=== PATIENT | female | born 1955 | race Caucasian/White ===

== ENCOUNTER 2017-02-02 12:08 | Day surgery (SDC) | payer OTHER ==
[2017-02-02] MEDS ORDERED: ALPRAZolam 0.5 MG TAB PO STA (12:58)
[2017-02-02 13:01] VITALS: PULSE 85; RESP 16; TEMP 97.2
[2017-02-02 14:54] VITALS: BP 137/81
--- NOTE | 2017-02-02 15:55 | US ---
EXAMINATION TYPE: US FNA thyroid DATE OF EXAM: 02/02/2017 COMPARISON: NONE HISTORY: right Thyroid nodule.Maximal barrier technique was utilized. After informed consent, skin o verlying the lesion was localized with ultrasound and the overlying skin prepped and draped. Ultrasou nd was utilized using sterile technique. Lidocaine was used for local anesthesia. Four passes with a 25-gauge needle were made into the nodule and aspirated specimen was submitted to cytology. Followi ng the procedure hemostasis achieved. No immediate complication. The patient discharged in stable c ondition. IMPRESSION: STATUS POST ULTRASOUND GUIDED FINE NEEDLE ASPIRATION OF THYROID NODULE, PATHOLOGY IS PEND ING. THIS PROCEDURE WAS PERFORMED BY THE UNDERSIGNED.
--- NOTE | 2017-02-02 15:56 | US ---
EXAMINATION TYPE: US FNA thyroid DATE OF EXAM: 02/02/2017 COMPARISON: NONE HISTORY: left upper Thyroid nodule. Maximal barrier technique was utilized. After informed consent, skin overlying the lesion was locali zed with ultrasound and the overlying skin prepped and draped. Ultrasound was utilized using sterile technique. Lidocaine was used for local anesthesia. Four passes with a 25-gauge needle were made int o the nodule and aspirated specimen was submitted to cytology. Following the procedure hemostasis ac hieved. No immediate complication. The patient discharged in stable condition. IMPRESSION: STATUS POST ULTRASOUND GUIDED FINE NEEDLE ASPIRATION OF THYROID NODULE, PATHOLOGY IS PEND ING. THIS PROCEDURE WAS PERFORMED BY THE UNDERSIGNED.
--- NOTE | 2017-02-02 15:57 | US ---
EXAMINATION TYPE: US FNA thyroid DATE OF EXAM: 02/02/2017 COMPARISON: NONE HISTORY: left lower pole Thyroid nodule. Maximal barrier technique was utilized. After informed consent, skin overlying the lesion was locali zed with ultrasound and the overlying skin prepped and draped. Ultrasound was utilized using sterile technique. Lidocaine was used for local anesthesia. Four passes with a 25-gauge needle were made int o the nodule and aspirated specimen was submitted to cytology. Following the procedure hemostasis ac hieved. No immediate complication. The patient discharged in stable condition. IMPRESSION: STATUS POST ULTRASOUND GUIDED FINE NEEDLE ASPIRATION OF THYROID NODULE, PATHOLOGY IS PEND ING. THIS PROCEDURE WAS PERFORMED BY THE UNDERSIGNED.
== END 2017-02-02 14:50 | disposition home or self-care (01) ==
LOC: RADPROMAIN 12:08
PROVIDERS: ATTEND Otolaryngology
DX: E04.1 Nontoxic single thyroid nodule (principal)
CPT/HCPCS: 10022; 76942; 88173; 88305

== ENCOUNTER → 2018-08-30 | Outpatient (CLI) | payer OTHER ==
[2018-08-30 12:05] LABS: HCT 41.6 % (34.0-46.0); MCH 30.6 pg (25.0-35.0); MCHC 33.7 g/dL (31.0-37.0); Mean Platelet Volume 6.5; Platelet Count 171 k/uL (150-450); RBC 4.57 m/uL (3.80-5.40); WBC 7.2 k/uL (3.8-10.6)
[2018-08-30 12:19] LABS: INR 0.9 (<1.2); Partial Thromboplastin Time 24.3 sec (22.0-30.0); Prothrombin Time 9.9 sec (9.0-12.0)
[2018-08-30 12:20] LABS: Anion Gap 9 mmol/L; Blood Urea Nitrogen 11 mg/dL (7-17); Carbon Dioxide 26 mmol/L (22-30); Chloride 106 mmol/L (98-107); Potassium 3.9 mmol/L (3.5-5.1); Sodium 141 mmol/L (137-145)
[2018-08-30 12:52] LABS: Amorphous Sediment,Urine Rare /hpf; Appearance,Urine Cloudy (Clear); Bilirubin,Urine Negative (Negative); Blood,Urine Negative (Negative); Color,Urine Yellow; Glucose,Urine (UA) Negative (Negative); Ketones,Urine Negative (Negative); Leukocyte Esterase,Urine Negative (Negative); Mucus,Urine Occasional /hpf; Nitrite,Urine Negative (Negative); PH, Urine 6.5 (5.0-8.0); Protein,Urine Negative (Negative); RBC,Urine 1 /hpf (0-5); Specific Gravity,Urine 1.013 (1.001-1.035); Squamous Epithelial Cell,Urine 2 /hpf (0-4); Urobilinogen,Urine <2.0 mg/dL (<2.0); WBC,Urine 1 /hpf (0-5)
== END | disposition home or self-care (01) ==
LOC: LABPAT 11:37
PROVIDERS: ATTEND Orthopaedic Surgery
DX: Z01.818 Encounter for other preprocedural examination (principal); Z01.812 Encounter for preprocedural laboratory examination
CPT/HCPCS: 36415; 80051; 81001; 82565; 84520; 85027; 85610; 85730; 87070; 93005

== ENCOUNTER 2018-09-05 07:00 | Inpatient (IN) | payer OTHER ==
[~2018-09-05 07:00] MED LIST: LIDOCAINE 1% 20 ML VIAL (10MG/ML) FOR IV START INTRADERMA PRN; MIDAZOLAM 2 MG/2 ML VIAL IV PRN; ROPIVACAINE 246.25 MG, EPINEPHrine 0.5 MG, KETOROLAC 30 MG, cloNIDine HCL/PF 80 MCG, WA... MISCELLANE ONE; TRANEXAMIC ACID 1,000 MG in SODIUM CHLORIDE 0.9% 100 ML IVPB ONE; ceFAZolin IN SWFI 2 GM/20 ML SYRINGE IVP ONE; fentaNYL (PF) 50 MCG/ML 2 ML AMP IV PRN
[2018-09-05] MEDS: ACETAMINOPHEN TAB 500 MG TAB PO ONE ×2 (07:51→13:31)
[2018-09-05] MEDS: MELOXICAM 7.5 MG TAB PO ONE ×2 (07:52→13:32)
[2018-09-05] MEDS: DEXAMETHASONE SOD PHOSPHATE 10 MG/ML 1 ML VIAL IV ONE ×2 (08:11→13:32)
[2018-09-05] MEDS: ONDANSETRON 4 MG/2 ML VIAL IVP ONE ×2 (08:12→13:32)
[2018-09-05] MEDS: LACTATED RINGERS 1,000 ML IV SCH (08:31)
[2018-09-05] MEDS ORDERED: BISACODYL 10 MG SUPP RECTAL PRN (09:35)
[2018-09-05] MEDS ORDERED: NA PHOS,M-B/NA PHOS,DI-BA 133 ML ENEMA RECTAL PRN (09:35)
[2018-09-05] MEDS ORDERED: HYDROcodone/APAP 5-325MG 1 EACH TAB PO PRN (09:35)
[2018-09-05] MEDS ORDERED: HYDROmorphone 1 MG/ML 1 ML SYRINGE IVP PRN (09:35)
[2018-09-05] MEDS ORDERED: MAGNESIUM HYDROXIDE 2,400 MG/10 ML CUP PO PRN (09:35)
[2018-09-05] MEDS ORDERED: DIAZEPAM 5 MG TAB PO PRN (09:35)
[2018-09-05] MEDS ORDERED: HYDROmorphone 0.5 MG/0.5 ML SYRINGE IVP PRN ×2 (09:35)
[2018-09-05] MEDS ORDERED: ONDANSETRON 4 MG/2 ML VIAL IVP PRN (09:35)
[2018-09-05] MEDS ORDERED: NALOXONE 0.4 MG/ML 1 ML VIAL IV PRN (09:35)
[2018-09-05] MEDS ORDERED: hydrOXYzine PAMOATE 25 MG CAP PO PRN (09:35)
[2018-09-05] MEDS ORDERED: TRANEXAMIC ACID 1,000 MG/10 ML VIAL ONE (10:08)
[2018-09-05] MEDS ORDERED: fentaNYL (PF) 50 MCG/ML 2 ML AMP ONE (10:08)
[2018-09-05] MEDS ORDERED: SODIUM CHLORIDE 0.9% 100 ML BAG ONE (10:08)
[2018-09-05] MEDS ORDERED: diphenhydrAMINE 50 MG/ML 1 ML VIAL ONE (10:08)
[2018-09-05] MEDS ORDERED: MIDAZOLAM 2 MG/2 ML VIAL ONE (10:08)
[2018-09-05] MEDS ORDERED: ceFAZolin 3,000 MG in SODIUM CHLORIDE 0.9% IRRIGATIO 3,000 ML IRRIGATION ONE (10:33)
[2018-09-05] MEDS ORDERED: ROPIVACAINE 1,100 MG, SODIUM CHLORIDE 0.9% 500 ML 330 ML MISCELLANE PRN ×2 (10:48)
[2018-09-05] MEDS ORDERED: LACTATED RINGERS 1,000 ML IV ONE (11:16)
--- NOTE | 2018-09-05 11:17 | P.OP ---
Date of Procedure: 09/05/18 Preoperative Diagnosis: Severe osteoarthritis left knee Postoperative Diagnosis: Severe osteoarthritis left knee Procedure(s) Performed: Left total knee arthroplasty Implants: López [employer] Journey II CR Oxinium cruciate retaining femoral component size 7, left Ló[employer] Journey left nonporous tibial baseplate size 5 Ló[employer] Journey II, XLPE CR articular insert, size 9 mm, Size 5-6 left [employer] Journey BCS resurfacing oval patellar component, 32 mm All components were cemented using Palacos R bone cement.. The articulation is Oxinium on polyethylene. Anesthesia: spinal Surgeon: Bean Tineo Cloth Colors Examiner #1: Helen Arshad Estimated Blood Loss (ml): 25 Pathology: other (bone and cartilage) Condition: stable Disposition: PACU Indications for Procedure: After failure of conservative treatment we discussed the surgical and nonsurgical treatment options at length. Patient wishes to proceed with a total knee arthroplasty. Complications specific to this procedure were discussed at length, including but not limited to infection, bleeding, stiffness, and nerve injury. Patient is aware of all these complications and informed consent was obtained Operative Findings: The operative findings are consistent with severe osteoarthritis of the left knee Description of Procedure: Patient was seen in the preoperative area consent was reviewed and operative site was marked with a skin marker. An adductor canal pain catheter was placed by anesthesia in the preoperative area. Patient was then brought to the operating room and given preoperative antibiotics intravenously. A spinal anesthetic was administered by the anesthesia department. A tourniquet was placed on the upper thigh and the lower extremity was prepped and draped in usual sterile fashion. A gram of transexamic acid was given. A universal timeout was then performed which confirmed the patient's name, surgical site, ALLERGIES, and consent. The lower extremity was then exsanguinated and tourniquet was inflated to 250 mmHg. A standard and anterior midline approach to the knee was performed. The skin and subcutaneous tissue was dissected down to the patellar tendon. A medial parapatellar arthrotomy was then performed. The knee was then extended, the patellar was everted, and the knee was again flexed. Anterior horns of both menisci were excised, and a release was performed to the posterior medial aspect of the knee. On gross visual inspection, there was complete loss of articular cartilage in the medial and patellofemoral joint spaces. There was also significant cartilage damage in the lateral compartment. There were multiple periarticular osteophytes which were then removed with a Ronguer. The femoral canal was then opened with the appropriate drill, and the intramedullary femoral cutting guide was then placed and set for 5 of valgus. The distal femoral cutting block was then pinned in place, and the distal femur was then cut. The cutting block was then removed and the cut was checked for flatness. Next, the sizing guide was then placed and set for 3 external rotation based off of the epicondylar axis and Whitesides line. After the femur was sized, the appropriate 4-in-1 cutting block was then pinned in place. The anterior condyles were cut without notching. The posterior and chamfer cuts were performed while protecting the collateral ligaments. The cutting block was then removed, and the femoral canal was plugged with autologous bone. Attention was then directed to the tibia. The remaining ACL was removed with a Ronguer, and the tibia was then gently subluxed forward with a large bent knee retractor. Any remaining menisci was excised. The posterior lateral corner was cauterized in order to cauterize the lateral geniculate artery. The extra medullary tibial cutting guide was then placed, set for the appropriate rotation, slope, and depth of resection. The proximal tibia cutting guide was then pinned in place. Proximal tibia was then cut and sized. Next trials were then placed with the appropriate-sized insert. The knee was able to fully extend and flex to 130 and was stable throughout all range of motion. The knee was then extended, patella everted. Patella was then measured, and then using an osteotomy guide, the patella was cut at the appropriate level. The patella was then measured and drilled and the patella trial was then placed. The knee was then taken through range of motion with the patella trial and the patella tracked normally. The knee was then extended patella trial was then removed and the patella was everted. Knee was then flexed and lug holes were drilled through the femoral trial and the femoral trial was then removed. The tibial was then exposed, and the tibial broach guide was then pinned in place after it was set for the appropriate rotation to allow for the most coverage without overhang. The tibia was then reamed and broached. The cut surfaces of bone were then irrigated with pulsatile lavage. The posterior structures were injected with the ropivacaine solution. The knee was also irrigated with Irrisept solution. The components were then opened, the cement was mixed, and the components were then cemented in place. The cement was allowed to harden with the knee in full extension. While the cement was hardening, the remaining soft tissues were then injected with a ropivacaine solution, which consisted of 246.25 mg of ropivacaine, 0.5 mg of epinephrine, 30 mg of Toradol, 80 g of clonidine, and 48.45 mL of sterile water, for a total of 100 mL of fluid injected. After the cemented hardened. The tourniquet was released, and hemostasis was obtained. A second gram of transexamic acid was given. The knee was again irrigated. The knee was again taken through range of motion and found to be stable throughout all range of motion of 0-130, and the patella tracked normally. The fascia was then closed with #2 strata fix suture. The subcutaneous tissue was closed with 3-0 Vicryl and 3-0 strata fix. Dermabond glue was used for the skin and placed with the knee in flexion. The patient was placed in a sterile silver dressing. Patient was then transferred to recovery room in stable condition. The ob gyn physician assistant AJITH Ferrara was required due the complexity surgery and the need for a skilled surgical sales representative. She assisted in positioning, draping, retraction, and closure of the wound.
--- NOTE | 2018-09-05 13:06 | XR ---
EXAMINATION TYPE: XR knee limited LT DATE OF EXAM: 09/05/2018 CLINICAL HISTORY: Right knee pain and arthritis status post total knee replacement. TECHNIQUE: Portable AP and crosstable lateral views of the left knee are obtained immediately postop eratively. COMPARISON: None FINDINGS: Metallic hardware from total left knee arthroplasty is seen and appears satisfactory in al ignment and position. There is evidence of recent surgery with diffuse subcutaneous gas and overlyin g soft tissue swelling noted. Calcification adjacent to the medial right femoral distal diaphysis cou ld relate to myositis ossificans. IMPRESSION: 1. METALLIC HARDWARE FROM TOTAL LEFT KNEE ARTHROPLASTY IS SATISFACTORY IN ALIGNMENT. 2. POSSIBLE MYOSITIS OSSIFICANS WITHIN THE VASTUS MEDIALIS.
[2018-09-05 13:31] VITALS: BMI 33.5
[2018-09-05] MEDS: SODIUM CHLORIDE 0.9% 1,000 ML IV SCH (13:32)
[2018-09-05] MEDS: HYDROcodone/APAP 5-325MG 1 EACH TAB PO PRN ×2 (15:45→22:07)
[2018-09-05] MEDS: ceFAZolin IN SWFI 2 GM/20 ML SYRINGE IVP SCH ×2 (15:46→23:46)
[2018-09-05] MEDS ORDERED: FAMOTIDINE 20 MG TAB PO PRN (17:45)
[2018-09-05] MEDS ORDERED: ALPRAZolam 0.25 MG TAB PO PRN (17:45)
[2018-09-05] MEDS ORDERED: SENNOSIDES-DOCUSATE SODIUM 1 EACH TAB PO SCH (21:00)
[2018-09-05] MEDS: ASPIRIN 325 MG TAB PO SCH (21:14)
[2018-09-05] MEDS: APREMILAST 30 MG PO SCH (21:53)
--- NOTE | 2018-09-06 00:28 | CONS ---
CONSULTATION DATE OF CONSULTATION: September 05, 2018 REASON FOR CONSULTATION: Medical management requested by Dr. Tineo. CONSULTATION: This is a pleasant 63-year-old patient of Dr. Avila. The patient underwent left total knee arthroplasty. Postprocedure pain is controlled. No nausea, vomiting. No chest pain. Chronic stable medical conditions include asthma, GERD, hyperlipidemia, osteoarthritis, hypothyroid, psoriatic arthritis, depression. The patient did have obstructive sleep apnea with loss of 40 pounds and does not use the CPAP anymore. The patient also states that she has a gallbladder duct spot that is being followed as an outpatient. Sitting up, comfortable. Did tolerate her meals. REVIEW OF SYSTEMS: CONSTITUTIONAL: None. HEENT: None. RESPIRATORY: None. CARDIOVASCULAR: None. GASTROINTESTINAL: Heartburn. GENITOURINARY: None. MUSCULOSKELETAL: Arthritic pain in joints. DERMATOLOGICAL, HEMATOLOGIC, LYMPHATIC: None. PSYCHIATRY: Depression, controlled. NEUROLOGICAL: None. PAST MEDICAL HISTORY: Asthma, GERD, hyperlipidemia, osteoarthritis, hypothyroid, obstructive sleep apnea, does not take treatment anymore, psoriatic arthritis, depression, anxiety. PAST SURGICAL HISTORY: Tubal ligation, cortisone injection, left knee, bilateral carpal tunnel. PSYCH HISTORY: Anxiety and depression. SOCIAL HISTORY: Does not smoke or drink alcohol. Lives by herself. FAMILY HISTORY: Thyroid and skin cancer. HOME MEDICATIONS: 1. Vitamin B complex 1 capsule p.o. daily. 2. Zantac 150 mg q.h.s. p.r.n. 3. Prilosec 20 mg p.o. with breakfast. 4. Lovaza one capsule p.o. daily. 5. Multivitamin one tablet p.o. daily. 6. Singulair 10 mg p.o. daily. 7. Magnesium gluconate 500 mg p.o. daily. 8. Synthroid 50 mcg p.o. daily. 9. Motrin 200 mg q.6h p.r.n. 10.Prozac 60 mg p.o. daily. 11.Zyrtec 10 mg p.o. daily. 12.Q-[place] 1 puff daily. 13.Otezla 30 mg p.o. b.i.d. 14.Ventolin 2.5 daily p.r.n. 15.Ventolin HFA 1-2 puffs q.6h p.r.n. 16.Xanax 0.25 q.h.s. p.r.n. ALLERGIES: TO CIPRO AND ERYTHROMYCIN, PENICILLIN, TETRACYCLINE. PHYSICAL EXAMINATION: VITAL SIGNS: Temperature 97.7, pulse 88, respiration 16, blood pressure 102/54, pulse ox 92 percent. GENERAL APPEARANCE: Well-built, BMI 33. Sitting up comfortable. EYES: Pupils equal. Conjunctivae normal. HEENT: External appearance of nose and ears normal. Oral cavity normal. NECK: JVD not raised. Mass not palpable. RESPIRATORY: Effort normal. LUNGS: Slightly decreased breath sounds. CARDIOVASCULAR: First and second sounds normal. No edema. ABDOMEN: Soft, nontender. Liver and spleen not palpable. LYMPHATICS: No lymph nodes palpable in the neck or axilla. PSYCHIATRY: Alert and oriented x3. Mood and affect normal. NEUROLOGICAL: Pupils equal. Cranial nerves grossly intact. Power and sensation grossly intact. MUSCULOSKELETAL: Evidence of osteoarthritis especially in the hands. Dressing on the left knee. INVESTIGATIONS: White count 7.2, hemoglobin 14, potassium 3.9. ASSESSMENT: 1. Left total knee arthroplasty. 2. Primary osteoarthritis. 3. Intermittent asthma. 4. Gastroesophageal reflux disease. 5. Hyperlipidemia. 6. Hypothyroidism. 7. Psoriatic arthritis. 8. Depression not otherwise specified. PLAN: Home medications are resumed. Pain control is in place. Patient getting aspirin 325 twice a day for DVT prophylaxis. Care was discussed with the patient. Questions were answered. The patient should follow with family doctor upon discharge. Thank you Dr. Tineo. [place] / JUAN PABLON: [id number] /
[2018-09-06] MEDS: SODIUM CHLORIDE 0.9% 1,000 ML IV SCH (01:07)
[2018-09-06 03:27] VITALS: TEMP 98.1
[2018-09-06] MEDS: LACTATED RINGERS 1,000 ML IV SCH (05:48)
[2018-09-06] MEDS: HYDROcodone/APAP 5-325MG 1 EACH TAB PO PRN ×2 (06:00→06:26)
[2018-09-06] MEDS ORDERED: LEVOTHYROXINE 50 MCG TAB PO SCH (06:30)
[2018-09-06] MEDS ORDERED: PANTOPRAZOLE 40 MG TABLET PO SCH (07:30)
[2018-09-06] MEDS: APREMILAST 30 MG PO SCH (07:59)
[2018-09-06] MEDS ORDERED: FLUTICASONE 44 MCG INHALER INHALATION SCH (08:00)
[2018-09-06] MEDS: ASPIRIN 325 MG TAB PO SCH (08:07)
[2018-09-06 08:08] VITALS: BP 126/72; PULSE 86; RESP 16
[2018-09-06 08:29] LABS: Basophils % (A) 0 %; Eosinophils # (A) 0.1 k/uL (0-0.7); Eosinophils % (A) 1 %; HGB 11.4 gm/dL (11.4-16.0); Lymphocytes # (A) 1.6 k/uL (1.0-4.8); Lymphocytes % (A) 16 %; MCH 30.7 pg (25.0-35.0); MCHC 33.4 g/dL (31.0-37.0); Monocytes # (A) 0.6 k/uL (0-1.0); Monocytes % (A) 6 %; Neutrophils % (A) 77 %; Platelet Count 152 k/uL (150-450); RDW 13.4 % (11.5-15.5); WBC 10.4 k/uL (3.8-10.6)
--- NOTE | 2018-09-06 08:31 | P.ONQ ---
Anesthesiology Proc Note - PNB - Peripheral Nerve Block Performed Left Adductor Canal Infusion Time Out Performed: Yes Procedure Start Time: 08:16 Procedure Stop Time: :28 Indication: Acute Post-Operative Pain, Requested by physician Sedation Type: Sedate with meaningful contact maintained Preparation: Sterile Dressing Position: Supine Catheter: Indwelling Needle Types: On-Q Needle Size: 100mm (4") Needle Gauge: 21 Technique: Ultrasound Injectate: 0.5% Ropivacaine (see comment for volume) (ropi .5% 20cc) Blood Aspirated: No Pain Paresthesia on Injection Noted: No Resistance on Injection: Normal Events: Uneventful and Well Tolerated
[2018-09-06] MEDS ORDERED: NON-FORMULARY DRUG (Vitamin B Complex [Vitamin B Complex] 1 CAP) PO SCH (09:00)
[2018-09-06] MEDS ORDERED: FLUoxetine HCL 20 MG CAP PO SCH (09:00)
[2018-09-06] MEDS ORDERED: MAGNESIUM OXIDE 400 MG TAB PO SCH (09:00)
[2018-09-06] MEDS ORDERED: MONTELUKAST 10 MG TAB PO SCH (09:00)
[2018-09-06] MEDS ORDERED: MELOXICAM 7.5 MG TAB PO SCH (09:00)
[2018-09-06] MEDS ORDERED: HYDROcodone/APAP 7.5-325MG 1 EACH TAB PO PRN ×2 (09:33)
--- NOTE | 2018-09-06 09:44 | P.DS ---
Providers Date of admission: 09/05/18 07:10 Expected date of discharge: 09/06/18 Attending physician: Bean Tineo Consults: 09/05/18 09:35 Consult Physician Routine Consulting Provider: Jai Peter Consult Reason/Comments: medical management Do you want consulting provider notified?: Yes Primary care physician: Stated None - Discharge Diagnosis(es) (1) Osteoarthritis of left knee Current Visit: Yes Status: Acute (2) Status post total left knee replacement Current Visit: Yes Status: Acute Hospital Course: This is a 63-year-old female with known history of degenerative arthritis of the left knee. The patient presents for evaluation. After discussion and consideration patient elects to proceed with total knee arthroplasty. The patient is seen preoperatively by Dr. Tineo and medically cleared for surgery by their primary care physician. Patient is admitted to [facility] on 09/05/2018 for total knee arthroplasty. The procedures performed without complication or sequelae. The patient is doing well postoperatively. Labs and vital signs are stable on day of discharge. On day of discharge patient's knee incision is healing well. There is minimal erythema. There is no drainage noted at this time. There is minimal soft tissue swelling to the knee. Patient has full foot and ankle motion without difficulty or pain. Calf is soft and nontender to palpation. Neurovascular status to the left lower extremity is intact. Patient is discharged home in good condition. Opioid start talking form is reviewed and signed at patient bedside. Please see med rec for accurate list of home medications. Plan - Discharge Summary Discharge Rx Participant: Yes New Discharge Prescriptions: New Aspirin 325 mg PO BID #60 tab HYDROcodone/APAP 7.5-325MG [[place] 7.5-325] 1 - 2 tab PO Q6H PRN #56 tab PRN Reason: Pain Sennosides [Senokot] 1 tab PO BID #60 tablet No Action Magnesium Gluconate [Magonate] 500 mg PO DAILY Multivitamins, Thera [Multivitamin (formulary)] 1 tab PO DAILY Montelukast [Singulair] 10 mg PO DAILY Cetirizine HCl [Zyrtec] 10 mg PO DAILY ALPRAZolam [Xanax] 0.25 mg PO HS PRN PRN Reason: Anxiety Albuterol Nebulized (Conc) [Ventolin Nebulized (Conc)] 2.5 mg INHALATION RT- DAILY PRN PRN Reason: Dyspnea [place]-3 Acid Ethyl Esters [Lovaza] 1 cap PO DAILY Ranitidine HCl [Zantac] 150 mg PO HS PRN PRN Reason: Gi Upset Levothyroxine Sodium [Synthroid] 50 mcg PO DAILY Ibuprofen [Motrin] 200 mg PO Q6HR PRN PRN Reason: Pain Vitamin B Complex 1 cap PO DAILY Albuterol Inhaler [Ventolin Hfa Inhaler] 1 - 2 puff INHALATION RT-Q6H PRN PRN Reason: Dyspnea Beclomethasone Dipropionate [Qvar 40 mcg Redihaler] 1 puff INHALATION DAILY Omeprazole [PriLOSEC] 20 mg PO AC-BRKFST Apremilast [Otezla] 30 mg PO BID FLUoxetine HCL [PROzac] 60 mg PO DAILY Discharge Medication List ALPRAZolam [Xanax] 0.25 mg PO HS PRN 01/13/17 [History] Albuterol Nebulized (Conc) [Ventolin Nebulized (Conc)] 2.5 mg INHALATION RT- DAILY PRN 01/13/17 [History] Cetirizine HCl [Zyrtec] 10 mg PO DAILY 01/13/17 [History] Ibuprofen [Motrin] 200 mg PO Q6HR PRN 01/13/17 [History] Levothyroxine Sodium [Synthroid] 50 mcg PO DAILY 01/13/17 [History] Magnesium Gluconate [Magonate] 500 mg PO DAILY 01/13/17 [History] Montelukast [Singulair] 10 mg PO DAILY 01/13/17 [History] Multivitamins, Thera [Multivitamin (formulary)] 1 tab PO DAILY 01/13/17 [History] [place]-3 Acid Ethyl Esters [Lovaza] 1 cap PO DAILY 01/13/17 [History] Ranitidine HCl [Zantac] 150 mg PO HS PRN 01/13/17 [History] Vitamin B Complex 1 cap PO DAILY 01/13/17 [History] Albuterol Inhaler [Ventolin Hfa Inhaler] 1 - 2 puff INHALATION RT-Q6H PRN 08/26/18 [History] Apremilast [Otezla] 30 mg PO BID 08/26/18 [History] Beclomethasone Dipropionate [Qvar 40 mcg Redihaler] 1 puff INHALATION DAILY 08/26/18 [History] Omeprazole [PriLOSEC] 20 mg PO AC-BRKFST 08/26/18 [History] FLUoxetine HCL [PROzac] 60 mg PO DAILY 09/05/18 [History] Aspirin 325 mg PO BID #60 tab 09/06/18 [Rx] HYDROcodone/APAP 7.5-325MG [[place] 7.5-325] 1 - 2 tab PO Q6H PRN #56 tab 09/06/18 [Rx] Sennosides [Senokot] 1 tab PO BID #60 tablet 09/06/18 [Rx] Follow up Appointment(s)/Referral(s): Bean Tineo DO [Doctor of Osteopathic Medicine] - 2 Weeks Activity/Diet/Wound Care/Special Instructions: Weightbearing as tolerated with a walker. CPM 5-6h daily. Leave dressing intact. May be removed by home care nurse or by patient in 10 days. May shower with dressing on. Please follow up with [facility] and call with any questions or concerns, . Discharge Disposition: HOME WITH HOME HEALTH SERVICES
--- NOTE | 2018-09-06 10:39 | P.PN ---
Progress Note - Text 09/06 710am 63-year-old female status post total knee replacement by Dr. Rodriguez. Patient is an On-Q pump for postop pain control with the solution running at 8 mL an hour. Patient has been comfortable and doing well, ambulating well. Plan to continue On-Q pump infusion
[2018-09-06] MEDS ORDERED: MULTIVITAMINS, THERA 1 EACH TAB PO SCH (12:00)
--- NOTE | 2018-09-06 21:44 | PN ---
PROGRESS NOTE DATE OF SERVICE: 09/06/2018 PRESENTING COMPLAINT: Left knee surgery. INTERVAL HISTORY: Patient is status post left knee surgery. Stable this morning. Some pain is present. Did tolerate her meals. No dizziness. No lightheadedness. No chest pain. Waiting to get discharged. Otherwise comfortable. REVIEW OF SYSTEMS: Done for constitutional, cardiovascular, GI, pulmonary; relevant findings as above. CURRENT MEDICATIONS: Reviewed. PHYSICAL EXAMINATION: VITAL SIGNS: Temperature 98.1, pulse 86, respiration 16, blood pressure 126/72, pulse ox 95% on room air. GENERAL APPEARANCE: Sitting up, comfortable. EYES: Pupils equal. Conjunctivae normal. NECK: JVD not raised. Mass not palpable. RESPIRATORY: Effort normal. LUNGS: Slightly decreased breath sounds. CARDIOVASCULAR: First and second sounds normal. No edema. ABDOMEN: Soft, non-tender. Liver and spleen not palpable. PSYCHIATRY: Alert and oriented x3. Mood and affect normal. INVESTIGATIONS: White count 10.4, hemoglobin 11.4. ASSESSMENT: 1. Left total knee arthroplasty. 2. Primary osteoarthritis. 3. Intermittent asthma. 4. Gastroesophageal reflux disease. 5. Hyperlipidemia. 6. Hypothyroidism. 7. Psoriatic arthritis. 8. Depression not otherwise specified. PLAN: Patient is stable. Continue current medication and treatment plan. MMODL / IJN: [id number] /
== END 2018-09-06 13:10 | disposition home health service (06) | DRG 470 ==
LOC: 2ORMAIN 07:10 → 4SSUR 12:32
PROVIDERS: ADMIT Orthopaedic Surgery; ATTEND Orthopaedic Surgery
PROC: 0SRD069 Replacement of Left Knee Joint with Oxidized Zirconium on Polyethylene Synthetic Substitute, Cemented, Open Approach (ICD-10-PCS; principal; 2018-09-05 09:15)
DX: M17.12 Unilateral primary osteoarthritis, left knee (principal); E03.9 Hypothyroidism, unspecified; E78.5 Hyperlipidemia, unspecified; F32.9 Major depressive disorder, single episode, unspecified; G47.33 Obstructive sleep apnea (adult) (pediatric); J45.20 Mild intermittent asthma, uncomplicated; K21.9 Gastro-esophageal reflux disease without esophagitis; L40.50 Arthropathic psoriasis, unspecified; Z79.899 Other long term (current) drug therapy; Z80.8 Family history of malignant neoplasm of other organs or systems; Z79.890 Hormone replacement therapy; Z88.1 Allergy status to other antibiotic agents; Z88.0 Allergy status to penicillin; Z83.3 Family history of diabetes mellitus; Z82.49 Family history of ischemic heart disease and other diseases of the circulatory system; Z87.891 Personal history of nicotine dependence; Z79.1 Long term (current) use of non-steroidal anti-inflammatories (NSAID); Z79.51 Long term (current) use of inhaled steroids
CPT/HCPCS: 85025; 88300

== ENCOUNTER → 2019-05-23 | Outpatient (CLI) | payer OTHER ==
[2019-05-23 12:28] LABS: Basophils # (A) 0.1 k/uL (0-0.2); Basophils % (A) 1 %; Eosinophils # (A) 0.2 k/uL (0-0.7); Eosinophils % (A) 2 %; HCT 42.4 % (34.0-46.0); HGB 14.5 gm/dL (11.4-16.0); Lymphocytes # (A) 2.6 k/uL (1.0-4.8); Lymphocytes % (A) 34 %; MCH 31.7 pg (25.0-35.0); MCHC 34.2 g/dL (31.0-37.0); MCV 92.6 fL (80.0-100.0); Mean Platelet Volume 7.1; Monocytes # (A) 0.3 k/uL (0-1.0); Monocytes % (A) 5 %; Neutrophils # (A) 4.2 k/uL (1.3-7.7); Neutrophils % (A) 56 %; Platelet Count 179 k/uL (150-450); RBC 4.58 m/uL (3.80-5.40); RDW 13.8 % (11.5-15.5); WBC 7.4 k/uL (3.8-10.6)
== END ==
LOC: LABPAT 10:53
PROVIDERS: ATTEND Obstetrics & Gynecology
DX: Z01.812 Encounter for preprocedural laboratory examination (principal)
CPT/HCPCS: 36415; 85025

== ENCOUNTER 2019-06-05 07:01 | Day surgery (SDC) | payer OTHER ==
[2019-06-01 11:17] VITALS: BMI 32.8
[~2019-06-05 07:01] MED LIST changes: +DEXAMETHASONE SOD PHOSPHATE 10 MG/ML 1 ML VIAL IV ONE; +LACTATED RINGERS 1,000 ML IV SCH; -MIDAZOLAM 2 MG/2 ML VIAL IV PRN; +ONDANSETRON 4 MG/2 ML VIAL IVP ONE; +Pre Op ABX Message 1 EACH MISC MISCELLANE ONE; -ROPIVACAINE 246.25 MG, EPINEPHrine 0.5 MG, KETOROLAC 30 MG, cloNIDine HCL/PF 80 MCG, WA... MISCELLANE ONE; -TRANEXAMIC ACID 1,000 MG in SODIUM CHLORIDE 0.9% 100 ML IVPB ONE; -ceFAZolin IN SWFI 2 GM/20 ML SYRINGE IVP ONE
--- NOTE | 2019-06-05 07:11 | P.HPOB ---
History of Present Illness H&P Date: 06/05/19 Chief Complaint: postmenopausal bleeding Kitty is a 64-year-old female who had had no bleeding since approximately 2004 at that time an endometrial biopsy was done with benign results potential polyp. Suspect same. She is scheduled for a D&C with hysteroscopy and a Pap smear. Risks/benefits/alternatives were reviewed with the patient in detail and all questions were answered for her prior to proceeding to the operating room. On physical exam this is an overweight female whose HEENT is unremarkable. Heart regular, lungs clear, extremities without pain. Abdomen is soft. Pelvic exams done in the operating room. All questions were answered for her prior to procee ding to the operative room. Past Medical History Past Medical History: Asthma, Cancer, GERD/Reflux, Hyperlipidemia, Osteoarthritis (OA), Pneumonia, Sleep Apnea/CPAP/BIPAP, Thyroid Disorder Additional Past Medical History / Comment(s): psoriatic arthritis, skin CA, Sleep apnea resolved with wt loss, gall bladder duct had "spot" ., spurs lower back, constipation. History of Any Multi-Drug Resistant Organisms: None Reported Past Surgical History: Joint Replacement, Orthopedic Surgery, Tubal Ligation Additional Past Surgical History / Comment(s): hortensia. carpal tunnel, total left knee (08/2018) Past Anesthesia/Blood Transfusion Reactions: Previous Problems w/ Anesthesia, Postoperative Nausea & Vomiting (PONV) Past Psychological History: Anxiety, Depression Smoking Status: Never smoker Past Alcohol Use History: Rare Past Drug Use History: None Reported - Past Family History Sister(s) Family Medical History: Cancer Additional Family Medical History / Comment(s): thyroid and skin CA, hx ruptured appendix Medications and Allergies Home Medications Medication Instructions Recorded Confirmed Type ALPRAZolam [Xanax] 0.25 mg PO HS PRN 01/13/17 06/01/19 History Albuterol Nebulized (Conc) 2.5 mg INHALATION RT-DAILY PRN 01/13/17 06/01/19 History [Ventolin Nebulized (Conc)] Ibuprofen [Motrin] 400 mg PO DIRECTED PRN 01/13/17 06/01/19 History Levothyroxine Sodium [Synthroid] 50 mcg PO DAILY 01/13/17 06/01/19 History Montelukast [Singulair] 10 mg PO HS 01/13/17 06/01/19 History Multivitamins, Thera [Multivitamin 1 tab PO DAILY 01/13/17 06/01/19 History (formulary)] Alpine-3 Acid Ethyl Esters [Lovaza] 1 cap PO DAILY 01/13/17 06/01/19 History Vitamin B Complex 1 cap PO DAILY 01/13/17 06/01/19 History Albuterol Inhaler [Ventolin Hfa 1 - 2 puff INHALATION RT-Q6H PRN 08/26/18 06/01/19 History Inhaler] Apremilast [Otezla] 30 mg PO BID 08/26/18 06/01/19 History Beclomethasone Dipropionate [Qvar 1 puff INHALATION DAILY 08/26/18 06/01/19 History 40 mcg Redihaler] Omeprazole [PriLOSEC] 20 mg PO AC-BRKFST 08/26/18 06/01/19 History FLUoxetine HCL [PROzac] 40 mg PO HS 06/01/19 06/01/19 History Fexofenadine HCl 180 mg PO HS 06/01/19 06/01/19 History Fluticasone Nasal [place] [Flonase 1 spray EA NOSTRIL DAILY 06/01/19 06/01/19 History Nasal [place]] Allergies Allergy/AdvReac Type Severity Reaction Status Date / Time ciprofloxacin [From Cipro] Allergy Swelling Verified 06/01/19 10:43 erythromycin base Allergy Rash/Hives Verified 06/01/19 10:43 Penicillins Allergy Swelling Verified 06/01/19 10:43 Tetracyclines Allergy Swelling Verified 06/01/19 10:43 Exam Osteopathic Statement: *. No significant issues noted on an osteopathic structural exam other than those noted in the History and Physical/Consult. - OBG Physical Exam Breast: both: normal (no masses) Abdomen: bowel sounds normal, no diffuse tenderness, no bruit present, no guarding noted, no hepatomegaly, no splenomegaly, no mass Vulva: both: normal Vagina: normal moisture, no discharge Cervix: no lesion, no discharge Uterus: normal size, normal contour Adnexa: both: normal Anus/Rectum: normal perianal skin, no rectal mass, no hemorrhoids, heme negative
[2019-06-05] MEDS ORDERED: MIDAZOLAM 2 MG/2 ML VIAL ONE (08:17)
[2019-06-05] MEDS ORDERED: PROPOFOL 10 MG/ML 20 ML VIAL IV ONE (08:17)
[2019-06-05] MEDS ORDERED: LIDOCAINE 1% INJ 10MG/ML (20 ML MDV) ONE (08:17)
[2019-06-05] MEDS ORDERED: SUCCINYLCHOLINE CHLORIDE 100 MG/5 ML SYR IV ONE (08:17)
[2019-06-05] MEDS ORDERED: fentaNYL (PF) 50 MCG/ML 2 ML AMP ONE (08:17)
--- NOTE | 2019-06-05 09:02 | P.OP ---
Date of Procedure: 06/05/19 Preoperative Diagnosis: Postmenopausal bleeding Postoperative Diagnosis: Same with polyp Procedure(s) Performed: D&C with hysteroscopy and Pap smear Anesthesia: BLANCA Surgeon: Yuriy Dueñas Estimated Blood Loss (ml): 1 Pathology: other (Pap smear, uterine curettings, polyp) Condition: stable Disposition: same day Operative Findings: 3 cm polyp is noted and removed grossly in toto Description of Procedure: Patient was taken to the operating suite where a general anesthetic was found be adequate. She was prepped and draped in the normal sterile fashion and placed in the dorsal lithotomy position. Initially a weighted speculum was inserted into the vagina and the anterior lip of the cervix was identified and grasped with an Allis clamp. Pap smear was then obtained with Kevorkian curette used for endocervical curettings. Once this was completed cervix was dilated camera was inserted. Grossly very large polyp was noted in the endometrium. Camera was then removed and using a polyp forcep and rotating counterclockwise motion to break off the pedicle the polyp was removed and sent to pathology essentially in total. Once this was completed sharp curettings of endometrium were obtained and camera was reinserted with verification of polyp removal. All instruments were then removed. Sponge, lap, needle counts were correct 2. Patient was then taken to the recovery room in stable and satisfactory condition. Plan - Discharge Summary Discharge Rx Participant: Yes New Discharge Prescriptions: New Ibuprofen [Motrin] 600 mg PO Q6HR PRN #30 tab PRN Reason: Pain No Action Multivitamins, Thera [Multivitamin (formulary)] 1 tab PO DAILY Montelukast [Singulair] 10 mg PO HS ALPRAZolam [Xanax] 0.25 mg PO HS PRN PRN Reason: Anxiety Albuterol Nebulized (Conc) [Ventolin Nebulized (Conc)] 2.5 mg INHALATION RT- DAILY PRN PRN Reason: Dyspnea Caret-3 Acid Ethyl Esters [Lovaza] 1 cap PO DAILY Levothyroxine Sodium [Synthroid] 50 mcg PO DAILY Ibuprofen [Motrin] 400 mg PO DIRECTED PRN PRN Reason: Pain Vitamin B Complex 1 cap PO DAILY Albuterol Inhaler [Ventolin Hfa Inhaler] 1 - 2 puff INHALATION RT-Q6H PRN PRN Reason: Dyspnea Beclomethasone Dipropionate [Qvar 40 mcg Redihaler] 1 puff INHALATION DAILY Omeprazole [PriLOSEC] 20 mg PO AC-BRKFST Apremilast [Otezla] 30 mg PO BID FLUoxetine HCL [PROzac] 40 mg PO HS Fluticasone Nasal [place] [Flonase Nasal [place]] 1 spray EA NOSTRIL DAILY Fexofenadine HCl 180 mg PO HS Discharge Medication List ALPRAZolam [Xanax] 0.25 mg PO HS PRN 01/13/17 [History] Albuterol Nebulized (Conc) [Ventolin Nebulized (Conc)] 2.5 mg INHALATION RT- DAILY PRN 01/13/17 [History] Ibuprofen [Motrin] 400 mg PO DIRECTED PRN 01/13/17 [History] Levothyroxine Sodium [Synthroid] 50 mcg PO DAILY 01/13/17 [History] Montelukast [Singulair] 10 mg PO HS 01/13/17 [History] Multivitamins, Thera [Multivitamin (formulary)] 1 tab PO DAILY 01/13/17 [History] Caret-3 Acid Ethyl Esters [Lovaza] 1 cap PO DAILY 01/13/17 [History] Vitamin B Complex 1 cap PO DAILY 01/13/17 [History] Albuterol Inhaler [Ventolin Hfa Inhaler] 1 - 2 puff INHALATION RT-Q6H PRN 08/26/18 [History] Apremilast [Otezla] 30 mg PO BID 08/26/18 [History] Beclomethasone Dipropionate [Qvar 40 mcg Redihaler] 1 puff INHALATION DAILY 08/26/18 [History] Omeprazole [PriLOSEC] 20 mg PO AC-BRKFST 08/26/18 [History] FLUoxetine HCL [PROzac] 40 mg PO HS 06/01/19 [History] Fexofenadine HCl 180 mg PO HS 06/01/19 [History] Fluticasone Nasal [place] [Flonase Nasal [place]] 1 spray EA NOSTRIL DAILY 06/01/19 [History] Ibuprofen [Motrin] 600 mg PO Q6HR PRN #30 tab 06/05/19 [Rx] Follow up Appointment(s)/Referral(s): Yuriy Dueñas DO [Doctor of Osteopathic Medicine] - 2 Weeks Activity/Diet/Wound Care/Special Instructions: No heavy lifting, limit stairs and driving, and pelvic rest. If any high temperatures, heavy bleeding, or severe pain call my office Discharge Disposition: HOME SELF-CARE
[2019-06-05 09:06] VITALS: TEMP 97.1
[2019-06-05] MEDS: HYDROmorphone 0.5 MG/0.5 ML SYRINGE IVP PRN ×2 (09:16→09:21)
[2019-06-05 09:18] VITALS: RESP 16
[2019-06-05 10:09] VITALS: BP 164/77; PULSE 82
== END 2019-06-05 10:27 | disposition home or self-care (01) ==
LOC: OR 07:01
PROVIDERS: ATTEND Obstetrics & Gynecology
DX: N84.0 Polyp of corpus uteri (principal); N95.0 Postmenopausal bleeding; J45.909 Unspecified asthma, uncomplicated; K21.9 Gastro-esophageal reflux disease without esophagitis; E78.5 Hyperlipidemia, unspecified; M19.90 Unspecified osteoarthritis, unspecified site; E07.9 Disorder of thyroid, unspecified; L40.50 Arthropathic psoriasis, unspecified; F32.9 Major depressive disorder, single episode, unspecified; F41.9 Anxiety disorder, unspecified; G47.33 Obstructive sleep apnea (adult) (pediatric); Z79.51 Long term (current) use of inhaled steroids; Z79.890 Hormone replacement therapy; Z79.899 Other long term (current) drug therapy; Z87.01 Personal history of pneumonia (recurrent); Z99.89 Dependence on other enabling machines and devices; Z85.828 Personal history of other malignant neoplasm of skin; Z98.890 Other specified postprocedural states; Z98.51 Tubal ligation status; Z96.652 Presence of left artificial knee joint; Z85.850 Personal history of malignant neoplasm of thyroid; Z88.1 Allergy status to other antibiotic agents; Z88.0 Allergy status to penicillin
CPT/HCPCS: 58558; J2250; J1100; J2405; J2001; J3010; J0330; J2704; J1170; 88305